=== PATIENT | male | born 1950 | race Caucasian/White ===

== ENCOUNTER 2016-07-11 03:36 | Emergency (ER) | payer OTHER ==
[~2016-07-11] VITALS: Ht 175.3 cm; Wt 99.8 kg
[~2016-07-11 03:36] MED LIST: ASPIRIN325 MG PO; CRESTOR10 MG PO; CRESTOR5 MG PO; DOXYCYCLINE HY100 M3 PO; METFORMIN HCL1000 MG PO; PANTOPRAZOLE SO40 MG PO; Prilosec PO; SOTALOL80 MG PO; TERAZOSIN HCL2 MG PO; TESSALON PERLE100 MG PO; TIMOLOL MALEATE15 M1 BOTH EYES
[2016-07-11] MEDS ORDERED: PREDNISONE50 MG PO (04:06)
[2016-07-11 04:31] VITALS: BP 134/86
== END 2016-07-11 04:31 | disposition home or self-care (01) ==
LOC: EME 03:36
DX: G56.01 Carpal tunnel syndrome, right upper limb (principal); E78.5 Hyperlipidemia, unspecified; E11.9 Type 2 diabetes mellitus without complications
CPT/HCPCS: 80048; 84484; 85025; 99281; 99284; J1885; J7512

== ENCOUNTER 2017-01-26 17:37 | Emergency (ER) | payer OTHER ==
[~2017-01-26] VITALS: Ht 170.2 cm; Wt 90.2 kg
[~2017-01-26 17:37] MED LIST changes: +PREDNISONE50 MG PO
[2017-01-26 18:53] LABS: EOSINOPHIL (%) 2.7 % (0-5); EOSINOPHIL COUNT 0.2 K/uL (0-0.3); HEMATOCRIT 46.6 % (38.0-50.0); IMMATURE GRANULOCYTE (%) 0.3 % (0.0-0.7); INSTRUMENT ABS NEUTROPHIL CT 3.1 K/uL; LYMPHOCYTE COUNT 2.7 K/uL (1.0-2.8); MCH 31.7 PG (29.0-34.0); MCHC 33.7 G/DL (30.0-36.0); MEAN PLAT.VOLUME 9.4 uM^3 (9.0-12.4); MONOCYTE (%) 9.6 % (3-12); MONOCYTE COUNT 0.6 K/uL (0-0.8); NEUTROPHIL (%) 46.7 % (45-76); NEUTROPHIL COUNT 3.1 K/uL (1.8-6.4); PLATELET COUNT 171 K/uL (156-360); RBC DIS.WIDTH-CV 13.8 % (11.8-14.6); RBC DIS.WIDTH-SD 47.6 % (39-53); RED BLOOD COUNT 4.96 M/uL (4.00-5.50); WHITE BLOOD COUNT 6.6 K/uL (4.1-10.2)
[2017-01-26 19:01] LABS: CHLORIDE 102 mEq/L (99-109); POTASSIUM 4.4 mEq/L (3.7-5.4); SODIUM 140 mEq/L (136-147)
[2017-01-26 19:03] LABS: GLUCOSE 89 mg/dL (70-99)
[2017-01-26 19:05] LABS: ANION GAP 13 MEQ/L (2-14); TOTAL BILIRUBIN 0.3 mg/dL (0.0-1.0)
[2017-01-26 19:07] LABS: ALKALINE PHOSPHATASE 83 IU/L (3-129); GFR ESTIMATE (CALCULATED) > 59 mL/min/
[2017-01-26 19:08] LABS: UREA NITROGEN (BUN) 15 mg/dL (9-23)
[2017-01-26 19:11] LABS: LIPASE 21 U/L (1.0-51.0)
[2017-01-26 19:14] LABS: TROP-I INTERPRETATION NEGATIVE; TROPONIN-I < 0.01 ng/mL (0.0-0.30)
[2017-01-26 19:25] LABS: ADD MIUA? YES; BILIRUBIN NEGATIVE; BLOOD SMALL; COLOR STRAW ((YELLOW)); GLUCOSE (STRIP) NEGATIVE; KETONES NEGATIVE; LEUKOCYTES NEGATIVE; NITRITE NEGATIVE; PROTEIN (STRIP) NEGATIVE; SPECIFIC GRAVITY 1.009 (1.000-1.030); UROBILINOGEN 0.2 MG/DL (0.2-1.0)
[2017-01-26 19:31] LABS: BACTERIA NONE SEEN /HPF; EPITHELIAL CELLS RARE /HPF; MUCUS NONE SEEN /LPF; RED BLOOD CELLS 0-5 /HPF (0-5); UCUL ADDED? NO; WHITE BLOOD CELLS 0-5 /HPF (0-5)
[2017-01-26] MEDS ORDERED: IBUPROFEN600 MG PO (21:46)
[2017-01-26] MEDS ORDERED: NORCO 5/3251 TABLET PO (21:49)
[2017-01-26 22:34] VITALS: BP 158/75
== END 2017-01-26 22:36 | disposition home or self-care (01) ==
LOC: EME 17:37
PROVIDERS: Emergency Medicine
DX: R10.13 Epigastric pain (principal); M54.6 Pain in thoracic spine; E11.9 Type 2 diabetes mellitus without complications; Z79.84 Long term (current) use of oral hypoglycemic drugs; E78.5 Hyperlipidemia, unspecified; F17.200 Nicotine dependence, unspecified, uncomplicated; Z88.6 Allergy status to analgesic agent
CPT/HCPCS: 71010; 74177; 80053; 81003; 83690; 84484; 85025; 93005; 99281; 99285; J1885; J2270; J7030

== ENCOUNTER 2017-09-08 00:23 | Observation (INO) | payer OTHER ==
[~2017-09-08] VITALS: Ht 176.5 cm; Wt 97.2 kg
[~2017-09-08 00:23] MED LIST changes: +IBUPROFEN600 MG PO; -METFORMIN HCL1000 MG PO; +METFORMIN HCL500 MG PO; +NORCO 5/3251 TABLET PO
[2017-09-08 00:56] LABS: HEMATOCRIT 45.4 % (38.0-50.0); HEMOGLOBIN 15.9 G/DL (12.5-16.6); MCH 32.2 PG (29.0-34.0); MCV 91.9 FL (86-99); PLATELET COUNT 161 K/uL (156-360); RBC DIS.WIDTH-SD 43.8 % (39-53); RED BLOOD COUNT 4.94 M/uL (4.00-5.50); WHITE BLOOD COUNT 6.8 K/uL (4.1-10.2)
[2017-09-08 01:09] LABS: ALBUMIN 4.3 g/dL (3.2-4.8); CHLORIDE 104 mEq/L (99-109); POTASSIUM 4.1 mEq/L (3.7-5.4); SODIUM 142 mEq/L (136-147)
[2017-09-08 01:10] LABS: D-DIMER ELISA < 150.00 ng/mLDDU (<230); MAGNESIUM 2.4 mg/dL (1.3-2.7)
[2017-09-08 01:11] LABS: PTT 28.9 SEC (25-37)
[2017-09-08 01:12] LABS: GLUCOSE 147 mg/dL (70-99); TOTAL PROTEIN 7.5 g/dL (6.4-8.3)
[2017-09-08 01:14] LABS: TOTAL BILIRUBIN 0.4 mg/dL (0.0-1.0)
[2017-09-08 01:15] LABS: ALKALINE PHOSPHATASE 92 IU/L (3-129); PHOSPHORUS 3.1 mg/dL (2.5-4.9)
[2017-09-08 01:16] LABS: CREATININE 1.1 mg/dL (0.6-1.3); GFR ESTIMATE (CALCULATED) > 59 mL/min/ (58.99-99999)
[2017-09-08 01:17] LABS: AST (GOT) 26 IU/L (2-34); UREA NITROGEN (BUN) 15 mg/dL (9-23)
[2017-09-08 01:18] LABS: ALT (GPT) 21 IU/L (3-49)
[2017-09-08 01:19] LABS: LIPASE 20 U/L (1.0-51.0)
[2017-09-08 01:22] LABS: TROP-I INTERPRETATION NEGATIVE; TROPONIN-I 0.02 ng/mL (0.0-0.30)
[2017-09-08] MEDS ORDERED: IBUPROFEN800 MG PO (01:39)
[2017-09-08 03:35] VITALS: BP 160/99
[2017-09-08 08:41] LABS: TROP-I INTERPRETATION NEGATIVE; TROPONIN-I 0.02 ng/mL (0.0-0.30)
[2017-09-08 09:05] VITALS: BP 125/64
[2017-09-08] MEDS ORDERED: XARELTO20 MG PO (10:28)
[2017-09-08] MEDS ORDERED: LOSARTAN POTASS25 MG PO (10:28)
[2017-09-08] MEDS ORDERED: METOPROLOL SUCC25 MG PO (10:28)
[2017-09-08 10:45] VITALS: BP 149/70
[2017-09-09 09:28] LABS: HEMOGLOBIN A1c (GLYCOHEMOGLOB) 6.5 % (Below 5.7)
== END 2017-09-08 12:40 | disposition home or self-care (01) ==
LOC: EME → EDBD 00:23 → EDOF 02:28 → ENRESERV 02:33 → 4SOUTH 03:30
PROVIDERS: Emergency Medicine; Hospitalist
DX: R00.2 Palpitations (principal); R07.89 Other chest pain; E11.9 Type 2 diabetes mellitus without complications; I10 Essential (primary) hypertension; I48.0 Paroxysmal atrial fibrillation; I49.3 Ventricular premature depolarization; E78.5 Hyperlipidemia, unspecified; Z98.890 Other specified postprocedural states; F17.200 Nicotine dependence, unspecified, uncomplicated; Z82.49 Family history of ischemic heart disease and other diseases of the circulatory system; Z79.82 Long term (current) use of aspirin; E66.9 Obesity, unspecified; Z68.31 Body mass index [BMI] 31.0-31.9, adult; Z79.84 Long term (current) use of oral hypoglycemic drugs; Z88.5 Allergy status to narcotic agent
CPT/HCPCS: 71045; 80053; 82948; 83036; 83690; 83735; 83880; 84100; 84484; 85027; 85379; 85610; 85730; 93005; 99281; 99285; G0378; J7030